=== PATIENT | male | born 1940 | race Caucasian/White ===

== ENCOUNTER 2023-06-12 14:28 | Emergency (ER) | payer BC ==
[~2023-06-12] VITALS: Ht 195.6 cm; Wt 79.8 kg
[2023-06-12] MEDS ORDERED: IV NORMAL SALINE 500 ML BAG IV ONE (15:15)
[2023-06-12 15:31] LABS: BASOPHILS % (AUTO) 0.3 % (0.0-2.0); EOSINOPHILS % (AUTO) 0.1 % (0.0-7.0); HEMATOCRIT 40.1 % (36.7-47.1); HEMOGLOBIN 13.6 g/dL (12.5-16.3); LYMPHOCYTES # (AUTO) 0.5 K/uL (0.8-4.8); LYMPHOCYTES % (AUTO) 3.5 % (20.5-51.5); MEAN CORPUSCULAR HEMOGLOBIN 33.4 uug (23.8-33.4); MEAN CORPUSCULAR HGB CONC 34 g/dL (32.5-36.3); MEAN CORPUSCULAR VOLUME 98.1 fL (73.0-96.2); MONOCYTES # (AUTO) 0.6 K/uL (0.1-1.30); MONOCYTES % (AUTO) 4.2 % (0.0-11.0); NEUTROPHILS # (AUTO) 13.1 K/uL (1.8-8.9); NEUTROPHILS % (AUTO) 91.9 % (38.5-71.5); PLATELET COUNT (AUTO) 218 K/uL (152-348); RED BLOOD CELL COUNT(AUTO) 4.08 MIL/uL (4.06-5.63); WHITE BLOOD COUNT (AUTO) 14.3 K/uL (3.6-10.2)
[2023-06-12 15:35] LABS: DIFFERENTIAL COMMENT 1
[2023-06-12] MEDS ORDERED: APIX5TAB4 PO (15:41)
[2023-06-12] MEDS ORDERED: METO50TA16 PO (15:41)
[2023-06-12] MEDS ORDERED: RAMI2.5C55 PO (15:41)
[2023-06-12 15:46] LABS: CALCIUM 9.6 mg/dL (8.5-10.1); CARBON DIOXIDE 26 mmol/L (21-32); CHLORIDE 102 mmol/L (98-107); CREATININE 1.3 mg/dL (0.6-1.3); GLUCOSE 140 mg/dL (74-106); POTASSIUM 3.6 mmol/L (3.5-5.1); SODIUM SERUM 138 mmol/L (136-145); UREA NITROGEN, BLOOD 25 mg/dL (7-18)
[2023-06-12 15:54] LABS: ALANINE AMINOTRANSFERASE 42 U/L (16-63); ALBUMIN 2.8 g/dL (3.4-5.0); ALKALINE PHOSPHATASE 57 U/L (50-136); ASPARTATE AMINOTRANSFERASE 27 U/L (15-37); BILIRUBIN,DIRECT 0.3 mg/dL (0.0-0.2); BILIRUBIN,TOTAL 1.2 mg/dL (0.2-1.0); TOTAL PROTEIN, SERUM 6.7 g/dL (6.4-8.2)
[2023-06-12] MEDS ORDERED: LEVO500T90 PO (16:12)
[2023-06-12] MEDS ORDERED: GUAI-671 PO (16:12)
[2023-06-12 16:30] VITALS: O2SAT 96
== END 2023-06-12 16:36 | disposition home or self-care (01) ==
LOC: EDBD 14:28 → ER 14:28
DX: J18.9 Pneumonia, unspecified organism (principal); Z79.899 Other long term (current) drug therapy; Z98.890 Other specified postprocedural states; Z20.822 Contact with and (suspected) exposure to COVID-19
CPT/HCPCS: 99285; 96360; 71045; 87426; 87804 ×2; 80076; 80048; 85025; 84145; 85730; 87040 ×2; 84484; 36415; 93005; 83605; J7040; A4606; A4663

== ENCOUNTER 2024-03-28 12:30 | Emergency (ER) | payer BC ==
[~2024-03-28] VITALS: Ht 195.6 cm; Wt 88.5 kg
[~2024-03-28 12:30] MED LIST: APIX5TAB4 PO; GUAI-671 PO; LEVO500T90 PO; METO50TA16 PO; RAMI2.5C55 PO
[2024-03-28] MEDS ORDERED: FLUORESCEIN SODIUM 1 MG STRIP ONE (13:22)
[2024-03-28] MEDS ORDERED: TETRACAINE HCL 0.5% OPHT DROP 2 ML BOTTLE ONE (13:23)
[2024-03-28] MEDS: TETRACAINE HCL 0.5% OPHT DROP 2 ML BOTTLE OP ONE (13:26)
[2024-03-28] MEDS: FLUORESCEIN SODIUM 1 MG STRIP OP ONE (13:26)
[2024-03-28] MEDS ORDERED: NEOMY/BACITRAC/POLYMI OINT 28.35 GM TUBE ONE (13:46)
[2024-03-28] MEDS ORDERED: AMOX-430 PO (13:50)
[2024-03-28] MEDS: NEOMY/BACITRA/POLYMYXIN B OINT UD PACKET TP ONE (13:58)
[2024-03-28] MEDS: AMOXICILLIN-CLAVUL 875-125MG TABLET PO ONE (13:59)
[2024-03-28] MEDS ORDERED: AMOXICILLIN-CLAVUL 875-125MG TABLET ONE (13:59)
[2024-03-28 14:11] VITALS: BP 130/98; O2SAT 99
== END 2024-03-28 14:30 | disposition home or self-care (01) ==
LOC: ER 12:30
DX: L03.213 Periorbital cellulitis (principal); I48.91 Unspecified atrial fibrillation; Z79.01 Long term (current) use of anticoagulants; Z98.890 Other specified postprocedural states
CPT/HCPCS: A4606; A4663

== ENCOUNTER 2025-02-25 16:47 | Inpatient (IN) | payer BC ==
[~2025-02-25] VITALS: Ht 175.3 cm; Wt 79.4 kg
[~2025-02-25 16:47] MED LIST changes: +AMOX-430 PO
[2025-02-25] MEDS: NEOMY/BACITRA/POLYMYXIN B OINT UD PACKET TP ONE (18:04)
[2025-02-25] MEDS ORDERED: NEOMY/BACITRA/POLYMYXIN B OINT UD PACKET TP ONE (18:09)
[2025-02-25 18:30] LABS: PLATELET COUNT (AUTO) 249 K/uL (152-348); RED BLOOD CELL COUNT(AUTO) 3.03 MIL/uL (4.06-5.63); RED CELL DISTRIBUTION WIDTH 13.2 % (12.1-16.2); WHITE BLOOD COUNT (AUTO) 6.6 K/uL (3.6-10.2)
[2025-02-25 18:42] LABS: CREATININE 0.9 mg/dL (0.6-1.3); SODIUM SERUM 142 mmol/L (136-145); UREA NITROGEN, BLOOD 22 mg/dL (7-18)
[2025-02-25 18:47] LABS: ASPARTATE AMINOTRANSFERASE 19 U/L (15-37); TOTAL PROTEIN, SERUM 6.5 g/dL (6.4-8.2)
[2025-02-25] MEDS ORDERED: CEFTRIAXONE /D5W 50ML IVPB **ER PYXIS IV ONE (23:00)
[2025-02-25] MEDS ORDERED: MAGNESIUM HYDROXIDE 30 ML LIQUID UDC PO PRN (23:30)
[2025-02-25] MEDS ORDERED: REMEDY ESSENTIAL ZINC PASTE 113 GM TP PRN (23:30)
[2025-02-26 04:00] VITALS: BP 134/93
[2025-02-26] MEDS ORDERED: VANCOMYCIN IV 1,500 MG in IV DEXTROSE 5% 500 ML IV ONE (05:45)
[2025-02-26 06:40] VITALS: BP 146/79; TEMP 99.6; O2SAT 98
[2025-02-26 08:10] LABS: PLATELET COUNT (AUTO) 246 K/uL (152-348); RED BLOOD CELL COUNT(AUTO) 3.08 MIL/uL (4.06-5.63); RED CELL DISTRIBUTION WIDTH 12.8 % (12.1-16.2); WHITE BLOOD COUNT (AUTO) 6.5 K/uL (3.6-10.2)
[2025-02-26 08:23] LABS: CREATININE 0.7 mg/dL (0.6-1.3); SODIUM SERUM 141 mmol/L (136-145); UREA NITROGEN, BLOOD 18 mg/dL (7-18)
[2025-02-26] MEDS: ONDANSETRON 4 MG/2 ML VIAL IV PRN (08:26)
[2025-02-26] MEDS: ACETAMINOPHEN 325 MG TABLET PO PRN (09:31)
[2025-02-26] MEDS: METOPROLOL TARTRATE 50 MG TABLET PO SCH (09:32)
[2025-02-26] MEDS: RAMIPRIL 1.25 MG CAPSULE PO SCH (10:10)
[2025-02-26] MEDS ORDERED: TRAM50TA2 PO (10:48)
[2025-02-26] MEDS: VANCOMYCIN IV 1,000 MG in IV DEXTROSE 5% 250 ML IV SCH (11:16)
[2025-02-26 11:55] VITALS: BP 135/87; TEMP 98; O2SAT 96
[2025-02-26] MEDS: ENOXAPARIN SODIUM 40 MG/0.4 ML DISP.SYRIN SQ SCH (12:00)
[2025-02-26 15:43] VITALS: BP 120/72; TEMP 98.1; O2SAT 98
[2025-02-26 19:48] VITALS: BP 121/64; TEMP 97.8; O2SAT 96
[2025-02-26] MEDS: TRAMADOL HCL 50 MG TABLET PO PRN (21:11)
[2025-02-27 07:05] VITALS: BP 137/71; TEMP 98.1; O2SAT 97
[2025-02-27 11:31] VITALS: BP 140/84; TEMP 98; O2SAT 98
[2025-02-27 16:00] VITALS: BP 142/90; TEMP 97.6; O2SAT 98
[2025-02-27 19:45] VITALS: BP 122/85; TEMP 97.8; O2SAT 96
[2025-02-28 04:59] VITALS: BP 132/85; TEMP 98.1; O2SAT 95
[2025-02-28] MEDS: VANCOMYCIN IV 1,250 MG in IV DEXTROSE 5% 250 ML IV SCH (10:52)
[2025-02-28 11:30] VITALS: BP 120/65; TEMP 98; O2SAT 97
[2025-02-28] MEDS: NEOMY/BACITRAC/POLYMI OINT 28.35 GM TUBE TOP SCH (13:42)
[2025-02-28 15:44] VITALS: BP 125/75; TEMP 98.8; O2SAT 95
[2025-02-28 19:46] VITALS: BP 120/61; TEMP 98.7; O2SAT 95
[2025-03-01 06:18] VITALS: BP 127/75; TEMP 97.6; O2SAT 95
[2025-03-01 12:12] VITALS: BP 121/72; TEMP 98.7; O2SAT 100
[2025-03-01] MEDS: APIXABAN 5 MG TABLET PO SCH (12:15)
[2025-03-01 16:04] VITALS: BP 141/83; TEMP 98.1; O2SAT 98
[2025-03-01 19:00] VITALS: BP 129/77; TEMP 98.6; O2SAT 96
[2025-03-02 06:24] VITALS: BP 130/74; TEMP 98.5; O2SAT 95
[2025-03-02 08:03] LABS: CREATININE 0.7 mg/dL (0.6-1.3); SODIUM SERUM 142 mmol/L (136-145); UREA NITROGEN, BLOOD 8 mg/dL (7-18)
[2025-03-02 09:29] VITALS: BP 118/78
[2025-03-02] MEDS: DOXYCYCLINE HYCLATE 100 MG TABLET PO SCH (11:35)
[2025-03-02] MEDS ORDERED: VANCOMYCIN IV 1,250 MG in IV DEXTROSE 5% 250 ML IV SCH (12:00)
[2025-03-02] MEDS ORDERED: ACET325T53 PO (12:19)
[2025-03-02] MEDS ORDERED: DOXY100T2 PO (12:19)
== END 2025-03-02 13:30 | disposition home or self-care (01) | DRG 603 ==
LOC: ER 16:58 → MEDSURG3 02-26 05:29
PROVIDERS: ADMIT Nurse Practitioner Acute Care; ATTEND Nurse Practitioner Acute Care
DX: L03.115 Cellulitis of right lower limb (principal); D68.59 Other primary thrombophilia; I45.2 Bifascicular block; Z96.641 Presence of right artificial hip joint; I48.91 Unspecified atrial fibrillation; D63.8 Anemia in other chronic diseases classified elsewhere; Z79.01 Long term (current) use of anticoagulants; I87.2 Venous insufficiency (chronic) (peripheral); S80.10XA Contusion of unspecified lower leg, initial encounter; S00.83XA Contusion of other part of head, initial encounter; W19.XXXA Unspecified fall, initial encounter; Z91.81 History of falling; Y92.89 Other specified places as the place of occurrence of the external cause; M15.9 Polyosteoarthritis, unspecified; I10 Essential (primary) hypertension; M79.89 Other specified soft tissue disorders; Z79.899 Other long term (current) drug therapy
CPT/HCPCS: 36415; 71045; 83605; 83735; 84100; 84484; 85025; 85730; 87040; 93005; A4606; A4663; G0378; J0696; J1650; J2405; J3373; J7050; J7060